=== PATIENT | female | born 1985 | race Caucasian/White ===

== ENCOUNTER 2024-11-03 21:57 | Emergency (ER) | payer MEDICAID, SELFPAY ==
[2024-11-03 21:57] VITALS: BMI 29.2
--- NOTE | 2024-11-03 22:01 | PD.EDRME ---
Rapid Medical Screening Exam RME Arrival date/time: 11/03/24 21:57 Chief Complaint: Nausea/Vomiting/Diarrhea RME Narrative: Here with abdominal pain, nausea, and vomiting. This started today. She has no urinary complaints.
[2024-11-03 22:04] VITALS: BP 132/90; PULSE 90; RESP 18; TEMP 36.9; O2SAT 97
[2024-11-03] MEDS: ACETAMINOPHEN 500 MG TABLET 1000 MG PO (22:14)
[2024-11-03] MEDS: ONDANSETRON ODT 4 MG TABRAP PO (22:14)
[2024-11-03 22:50] LABS: Basophils % (Auto) 0 % (0-2.5); Eosinophils % (Auto) 0 % (0-10); Hematocrit 39.6 % (36.0-46.0); Hemoglobin 14.1 g/dL (12.0-16.0); Immature Granulocytes % (Auto) 0 % (0-0); Immature Granulocytes Auto 0.02 Thou/mm3 (0.00-0.00); Lymphocytes # (Auto) 1.2 Thou/mm3 (1.0-4.8); Lymphocytes % (Auto) 20 % (10-50); Mean Corpuscular HGB Conc 35.6 g/dl (31.0-37.0); Mean Corpuscular Hemoglobin 28.7 pg (25.0-35.0); Mean Corpuscular Volume 81 fL (80-100); Monocytes # (Auto) 0.4 Thou/mm3 (0.0-0.8); Monocytes % (Auto) 6 % (0-12); Neutrophils # (Auto) 4.3 Thou/mm3 (1.8-7.7); Neutrophils % (Auto) 73 % (37-80); Nucleated Red Blood Cell % 0 /100 WBC (0); Platelet Count 188 Thou/mm3 (140-440); Red Blood Count 4.92 Miln/mm3 (4.00-5.20); White Blood Count 5.9 Thou/mm3 (3.6-11.0)
--- NOTE | 2024-11-03 22:58 | PD.EDNV ---
Nausea/Vomit./Diarrhea-RME/HPI General Chief complaint: Nausea/Vomiting/Diarrhea Stated complaint: VOMITING Time Seen by Provider: 11/03/24 22:30 Arrival date/time: 11/03/24 21:57 RME / HPI RME / HPI Narrative: Here with abdominal pain, nausea, and vomiting. This started today. She has no urinary complaints. --------- Dr. Jerry?s Main ED Evaluation: 39yo female presents to the ED for a chief complaint of epigastric pain x this morning. Patient states she woke up early this morning having significant epigastric pain. Patient reports associated nausea and vomiting. Patient denies any fever, chills, UTI symptoms, hematuria, bloody stooles or any otehr associated symptoms. Patient is a current tobacco smoker. PSH includes cholecystectomy, , and exploratory laparotomy. Denies any alcohol or illicit drug use. Related Data Previous Rx's ?Medication ?Instructions ?Recorded docusate sodium 100 mg capsule 100 mg PO BID #40 caps 09/28/22 (Colace) hydrocodone 5 mg-acetaminophen 325 1 tab PO Q6H PRN pain (scale score 09/28/22 mg tablet 7-10) #20 tabs ibuprofen 600 mg tablet 600 mg PO Q8H PRN pain (scale 09/28/22 score 4-6) #15 tabs ondansetron 4 mg disintegrating 4 mg PO Q12H PRN nausea and 10/13/22 tablet vomiting #4 tabs naproxen 500 mg tablet 500 mg PO BID PRN pain #30 tabs 11/19/22 ondansetron 4 mg disintegrating 4 mg PO Q6H PRN nausea and 10/13/23 tablet vomiting #20 tabs ondansetron 4 mg disintegrating 4 mg PO Q12H PRN nausea and 11/03/24 tablet vomiting #4 tabs Allergies Allergy/AdvReac Type Severity Reaction Status Date / Time avocado Allergy Severe abd pain, Verified 11/03/24 22:00 itching Sulfa (Sulfonamide Allergy Vomiting Verified 11/03/24 22:00 Antibiotics) Review of Systems Review of Systems Systems Reviewed: All systems reviewed, normal except as documented Past Medical History Past Medical History NEUROLOGIC: Positive Peripheral Neuropathy and Migraine; Negative Neurological Disorders or Seizures CARDIAC: Negative Cardiac Disorders or Congestive Heart Failure RESPIRATORY: Positive Asthma; Negative Chronic Obstructive Pulmonary Disease (COPD) GASTROINTESTINAL: Positive Gastrointestinal Disorders, Gall Bladder Disease, Diverticulitis, Hiatal Hernia, Hemorrhoids and Obesity; Negative Hepatitis GENITOURINARY: Negative Genitourinary Disorders or Renal Disease REPRODUCTIVE: Positive Pelvic Inflammatory Disease and Previous Pregnancies MUSCULOSKELETAL: Positive Musculoskeletal Disorders, Arthritis and Rheumatoid Arthritis ENT: Positive Deafness ENDOCRINE: Negative Endocrine Disorders, Diabetes Mellitus Type 1 or Diabetes Mellitus Type 2 HEMATOLOGIC: Negative Blood Disorders or Sickle Cell Disease PSYCHO/SOCIAL: Positive Depression, Anxiety and Depression OTHER HISTORY: Positive Chicken Pox and Cancer; Negative Autoimmune Disease, Shingles, Falls, Blood Transfusions, Anesthesia Reactions, MRSA, VRSA, Vancomycin-Resistant Enterococci, Human Immunodeficiency Virus (HIV), Measles, Mumps, Rubella (Nepali Measles), Pertussis or Clostridium Difficile Family History FAMILY HISTORY: Positive Family Psychiatric Problems, Family Cardiac Disorders, Family Cancer and Family Surgery; Negative Family Respiratory Disorders, Family Gastrointestinal Problems or Family Anesthesia Reaction Surgical History SURGICAL: Positive Tonsillectomy, Abdominal Surgery, Tubal Ligation and Section Social History SMOKING STATUS: Light (< 1 pack/day) SECOND HAND EXPOSURE: Yes SUBSTANCE USE: does not use ED Exam Narrative Physical exam: GEN. APPEARANCE: The patient is alert awake oriented X-3 in no distress, lying down comfortably, does not look ill/toxic. Patient has good eye contact. Patient is cooperative. VITALS: All vitals were reviewed and the pulse ox is 97% on room air which is normal according to my interpretation. HEENT: Normocephalic, atraumatic. Pupils are equal and reactive. Oral mucosa is moist. Patent Nares NECK: Supple, nontender, no thyromegaly, no meningismus, no JVD CHEST: Symmetrical, atraumatic, and with equal expansion , Nontender on palpation no deformity and no crepitus. CARDIOVASCULAR: Heart regular rhythm no murmur or gallop rub or extra beats. LUNGS: Clear to auscultation bilaterally with symmetrical chest rise. No laboring tachypnea or wheezing. No intercostal subcostal retraction. No rales and no rhonchi. ABDOMEN: Soft, flat, epigastric tenderness to palpation, no guarding or rebound tenderness. There are no abnormal masses palpated. Active and normal bowel sounds. EXTREMITIES: Nontender. No edema. No cyanosis. Patient is able to move all 4 extremities well, with full ROM and good CSM. SKIN: Warm and dry, no jaundice or rashes noted. NEURO: Patient is [place]DA[place] x 4, Cranial nerves II through XII grossly intact. There is no focal neurologic deficits noted. GCS is 15, PNS and SHOP FITTER appear grossly intact. PSYCHIATRIC: Patient is in normal mood and affect. Course Quality Measures none Orders Category Date Time Status CBC Stat Lab 11/03/24 22:25 Completed CMP [Comprehensive Metabolic Panel] Stat Lab 11/03/24 22:25 Completed HCG,Qualitative Serum Stat Lab 11/03/24 22:25 Completed Lipase Stat Lab 11/03/24 22:25 Completed UA, C/S IF [Urinalysis, C/S if Indicated] Stat Lab 11/04/24 00:15 Completed Acetaminophen Tab [Tylenol ES Tab] Med 11/03/24 22:00 Discontinued 1,000 mg PO X1 ONE Ondansetron Odt [Zofran Odt] Med 11/03/24 22:00 Discontinued 4 mg PO X1 ONE Vital Signs Vital signs: Vital Signs Temperature 98.5 F 11/03/24 22:04 Pulse Rate 90 11/03/24 22:04 Respiratory Rate 18 11/03/24 22:04 Blood Pressure 132/90 H 11/03/24 22:04 Pulse Oximetry (%) 97 11/03/24 22:04 Oxygen Delivery Method Room Air 11/03/24 22:04 Procedures -ED Smoking Cessation Time Spent Discussing Smoking Cessation w/Patient (min): 5 Patient Acknowledges Need for Cessation: Yes Additional Comments: The patient was counseled as to the multiple risks to their health from continued use of tobacco products. It was explained that continuing to smoke may lead to multiple short and penitentiary negative health consequences, including but not limited to mouth/esophageal/lung cancer, COPD, and heart disease. The patient states she/he understands these risks and also understands the options and resources available to them to help them stop smoking. Nicotine replacement therapy, local hotlines, and local resources were discussed as viable options for helping them stop their tobacco use. The total time spent counseling the patient regarding tobacco cessation was 5 minutes. Nausea/Vomiting/Diarrhea MDM Narrative MDM Narrative:: Scribe Attestation: 11/03/24 - Caren Muniz am scribing for and in the presence of Dr. Jerry. 0018: Patient tolerated PO fluids. Urinalysis still pending at this time. Patient data External records reviewed:: [facility] previous records (Per chart review, patient was seen here on 10/13/23 for abdominal pain.) and EMS form Clinical information provided by:: patient Social determinants that could affect healthcare access:: substance use (current smoker) Patient has the following chronic illnesses:: asthma How is presenting disease/condition affected by chronic disease/condition?: uneffected by Evaluation data The following diagnostics were reviewed and interpreted by me:: lab results Lab and/or radiology exams considered but not ordered:: none Interpretation Summary: CBC normal, CMP normal, Lipase normal, HCG negative, UA unremarkable. No evidence of acute abdomen, patient tolerating oral intake. No acute etiology for patient's current symptoms identified at this time. Patient tolerating oral intake symptoms resolved. Medications / Prescriptions Medications / Prescriptions considered but not ordered:: none Medication administrations:: Medication Administration History Discontinued Medications Acetaminophen (Acetaminophen 500 Mg Tablet) 1,000 mg PO X1 ONE Stop: 11/03/24 22:01 Last Admin: 11/03/24 22:14 Dose: 1,000 mg Documented By: ASUNCION Ondansetron HCl (Ondansetron Odt 4 Mg Tabrap) 4 mg PO X1 ONE; Protocol Stop: 11/03/24 22:01 Last Admin: 11/03/24 22:14 Dose: 4 mg Documented By: ASUNCION see above Consultations Consultation(s) initiated? (list below): No Diagnosis Nausea Differential Diagnosis: other (pancreatitis, gastritis, enteritis, food intolerance, metabolic disturbance, pyelonephritis) Most likely diagnosis given after review of the tests above:: see clinical impression below Admission Indicated Admission indicated?: not indicated Admission Request Was there a request for admission?: No Disposition Plan Disposition Plan: Discharge Discharge Attestation Discharge Attestation: The patient and all family members were given an opportunity to ask questions and understood the discharge instructions. Discharge instructions specifically effects, indications for sooner follow up or return to the emergency department, and the expected course of current diagnosis. Patient condition: Stable Discharge Plan Plan Patient Disposition: HOME (Self Care) Prescriptions/Referrals Prescriptions/Med Rec: New ondansetron 4 mg tablet,disintegrating 4 mg PO Q12H PRN (Reason: nausea and vomiting) Qty: 4 0RF No Action naproxen 500 mg tablet 500 mg PO BID PRN (Reason: pain) Qty: 30 0RF ondansetron 4 mg tablet,disintegrating 4 mg PO Q6H PRN (Reason: nausea and vomiting) Qty: 20 0RF docusate sodium [Colace] 100 mg capsule 100 mg PO BID Qty: 40 0RF ibuprofen 600 mg tablet 600 mg PO Q8H PRN (Reason: pain (scale score 4-6)) Qty: 15 0RF hydrocodone-acetaminophen 5-325 mg tablet 1 tab PO Q6H MDD 4 PRN (Reason: pain (scale score 7-10)) Qty: 20 0RF ondansetron 4 mg tablet,disintegrating 4 mg PO Q12H PRN (Reason: nausea and vomiting) Qty: 4 0RF Referrals: Rivera Cox MD [Primary Care Provider] - In 1 week Problem List Clinical Impression: Nausea & vomiting, Acute epigastric pain Patient/Caregiver Discharge Instructions Discharge Activity: resume usual activities Diet Instructions: bland diet, avoid smoking/carbonated drinks, spicy food Education Materials: ED Vomiting (Adult) Additional Instructions: Please discuss your hiatal hernia with a security infrastructure engineer as this may be contributing to your symptoms Print Language: Haitian Stand Alone Forms: Samra Award Info., Patient Portal Info Letter
[2024-11-03 23:07] LABS: HCG,Qualitative Serum Negative
[2024-11-03 23:08] LABS: Alanine Aminotransferase 21 U/L (10-49); Albumin/Globulin Ratio 1.5 (1.2-2.2); Alkaline Phosphatase 71 U/L (46-116); Anion Gap 7 (7-16); Aspartate Amino Transferase 32 U/L (0-34); BUN/Creatinine Ratio 20 Ratio (12-20); Bilirubin,Total 0.7 mg/dL (0.3-1.2); Blood Urea Nitrogen 14 mg/dL (9-23); Calcium 8.3 mg/dL (8.3-10.6); Calcium (Corrected) 8.3 mg/dL (8.5-10.1); Chloride 105 mMol/L (98-107); Creatinine (Component) 0.7 mg/dL (0.6-1.3); Estimated Creatinine Clearance 102.5 mL/min (>60); Globulin 2.7 gm/dL (2.3-3.5); Glucose 98 mg/dL (74-106); Lipase 31 U/L (12-53); Osmolality,Calculated 278 (275-295); Potassium 3.8 mMol/L (3.4-5.1); Sodium 139 mMol/L (136-145); Total Protein 6.7 gm/dL (5.7-8.2); eGFR > 60 See Note
[2024-11-03 23:24] VITALS: BP 131/82; PULSE 90; RESP 18; TEMP 36.8; O2SAT 99
[2024-11-04 00:21] LABS: Collection Type, Urine Clean Catch
[2024-11-04 00:35] LABS: Bilirubin,Urine Negative (Negative); Blood,Urine Negative (Negative); Clarity,Urine Clear (Clear/Hazy); Color,Urine Lt-Yellow (Lt Yel-Yel); Culture Indicated,Urine Not Indicated; Glucose, Urine Negative (Negative); Ketones,Urine Negative (Negative); Leukocyte Esterase,Urine Negative (Negative); Nitrite,Urine Negative (Negative); Protein,Urine Negative (Neg - Trace); RBC,Urine 1 /hpf (0-3); Specific Gravity,Urine 1.017 (1.001-1.035); Squamous Epithelial Cell,Urine 2 /hpf (0-5); Urobilinogen,Urine Negative mg/dL (0.0-1.0); WBC,Urine 2 /hpf (0-5)
[2024-11-04 01:01] VITALS: BP 128/76; PULSE 76; RESP 16; TEMP 36.8; O2SAT 98
== END 2024-11-04 01:03 | disposition home or self-care (01) ==
PROVIDERS: Physician Assistant Medical; Emergency Provider Emergency Medicine; PCP Obstetrics & Gynecology
DX: R11.2 Nausea with vomiting, unspecified (principal); R10.13 Epigastric pain
CPT/HCPCS: 36415; 80053; 81001; 83690; 84703; 85025; 99283; Q0162; A9270

== ENCOUNTER 2025-03-02 13:46 | Emergency (ER) | payer MEDICAID, SELFPAY ==
[2025-03-02 13:54] VITALS: PULSE 76; RESP 18; O2SAT 99
[2025-03-02 14:05] VITALS: BP 153/94; PULSE 72; RESP 20; TEMP 37.1; O2SAT 99; BMI 34.3
--- NOTE | 2025-03-02 15:01 | PD.EDABDPN ---
ED Abdominal Pain RME/HPI General Chief Complaint: Abdominal Pain Stated complaint: ABDOMINAL PAIN Time seen by provider: 03/02/25 13:50 Arrival date/time: 03/02/25 13:46 RME / HPI RME / HPI narrative: 40 year old male with no stated medical history presents to the ED BIBA from home for evaluation of vomiting, diarrhea, and abdominal pain beginning this morning. Abdominal pain described as cramping aching in sensation that is located throughout, rating as severe. Accompanied by sweating and bright red blood streaks in stool. States her had given her Imodium and one of his [place] with little to no relief, prompting ED visit. Patient states she was at her usual state of health yesterday and for dinner had made a pot roast sandwich. Denies any sick contacts or recent travel. Denies fevers, chills, chest pain, cough, shortness of breath, or urinary symptoms. Related Data Previous Rx's ?Medication ?Instructions ?Recorded docusate sodium 100 mg capsule 100 mg PO BID #40 caps 09/28/22 (Colace) hydrocodone 5 mg-acetaminophen 325 1 tab PO Q6H PRN pain (scale score 09/28/22 mg tablet 7-10) #20 tabs ibuprofen 600 mg tablet 600 mg PO Q8H PRN pain (scale 09/28/22 score 4-6) #15 tabs ondansetron 4 mg disintegrating 4 mg PO Q12H PRN nausea and 10/13/22 tablet vomiting #4 tabs naproxen 500 mg tablet 500 mg PO BID PRN pain #30 tabs 11/19/22 ondansetron 4 mg disintegrating 4 mg PO Q6H PRN nausea and 10/13/23 tablet vomiting #20 tabs ondansetron 4 mg disintegrating 4 mg PO Q12H PRN nausea and 11/03/24 tablet vomiting #4 tabs famotidine 40 mg tablet 40 mg PO BID PRN stomach upset #20 03/02/25 tabs ondansetron 4 mg disintegrating 4 mg PO Q8H PRN nausea and 03/02/25 tablet vomiting #6 tabs Allergies Allergy/AdvReac Type Severity Reaction Status Date / Time avocado Allergy Severe abd pain, Verified 11/03/24 22:00 itching Sulfa (Sulfonamide Allergy Vomiting Verified 11/03/24 22:00 Antibiotics) Review of Systems Review of Systems Systems Reviewed: All systems reviewed, normal except as documented Past Medical History Past Medical History NEUROLOGIC: Positive Peripheral Neuropathy and Migraine RESPIRATORY: Positive Asthma GASTROINTESTINAL: Positive Gastrointestinal Disorders, Gall Bladder Disease, Diverticulitis, Hiatal Hernia, Hemorrhoids and Obesity REPRODUCTIVE: Positive Pelvic Inflammatory Disease and Previous Pregnancies MUSCULOSKELETAL: Positive Musculoskeletal Disorders, Arthritis and Rheumatoid Arthritis ENT: Positive Deafness PSYCHO/SOCIAL: Positive Depression, Anxiety and Depression OTHER HISTORY: Positive Chicken Pox and Cancer Family History FAMILY HISTORY: Positive Family Psychiatric Problems, Family Cardiac Disorders, Family Cancer and Family Surgery Surgical History SURGICAL: Positive Tonsillectomy, Abdominal Surgery, Tubal Ligation and Section Social History SMOKING STATUS: Never smoker SECOND HAND EXPOSURE: Yes SUBSTANCE USE: does not use ED Exam Narrative Physical exam: Constitutional: Awake, alert, nontoxic, appears uncomfortable otherwise in no acute distress HEENT: Normocephalic, atraumatic, extraocular movements intact. Neck: Supple CV: Regular rate and rhythm, no murmurs/rubs/gallops Lungs: Clear to auscultation BL, no respiratory distress. Abd: Soft, minimal tenderness throughout abdomen, no guarding, no rebound, ND, no HSM noted to palpation Skin: Warm, dry, intact Course Course Course Narrative: 1650h: Patient reports feeling improved. Patient initially had refused any sick contacts. However, now mentioned other family members in her home have been sick with similar symptoms. Patient vitally stable, will DC home. Quality Measures none Orders Category Date Time Status Insert IV NOW Care 03/02/25 14:59 Active CBC Stat Lab 03/02/25 15:05 Completed CMP [Comprehensive Metabolic Panel] Stat Lab 03/02/25 15:05 Completed Magnesium Stat Lab 03/02/25 15:05 Completed Urinalysis, C/S if Indicated Stat Lab 03/02/25 17:01 Received Dicyclomine Inj [Bentyl Inj] Med 03/02/25 14:58 Discontinued 20 mg IM X1 ONE Ondansetron Inj [Zofran Inj] Med 03/02/25 14:58 Discontinued 4 mg IVP X1 ONE Prochlorperazine Inj [Compazine Inj] Med 03/02/25 14:58 Discontinued 10 mg IV X1 ONE Vital Signs Vital signs: Vital Signs Temperature 98.8 F 03/02/25 14:05 Pulse Rate 72 03/02/25 14:05 Respiratory Rate 20 03/02/25 14:05 Blood Pressure 153/94 H 03/02/25 14:05 Pulse Oximetry (%) 99 03/02/25 14:05 Oxygen Delivery Method Room Air 03/02/25 14:05 Pulse ox is 99% on room air which is adequate. Abdominal Pain MDM MDM Narrative MDM Narrative:: Anu Muniz am scribing for and in the presence of Dr. Sheth. Patient data External records reviewed:: [facility] previous records and EMS form Clinical information provided by:: patient Social determinants that could affect healthcare access:: none Patient has the following chronic illnesses:: none reported How is presenting disease/condition affected by chronic disease/condition?: no chronic disease Evaluation data The following diagnostics were reviewed and interpreted by me:: lab results Lab and/or radiology exams considered but not ordered:: None Interpretation Summary: Laboratory Results WBC 14.5 Thou/mm3 (3.6-11.0) H 03/02/25 15:05 RBC 5.01 Miln/mm3 (4.00-5.20) 03/02/25 15:05 Hgb 14.7 g/dL (12.0-16.0) 03/02/25 15:05 Hct 41.5 % (36.0-46.0) 03/02/25 15:05 MCV 83 fL (80-100) 03/02/25 15:05 MCH 29.3 pg (25.0-35.0) 03/02/25 15:05 MCHC 35.4 g/dl (31.0-37.0) 03/02/25 15:05 RDW Std Deviation 36.6 fL (36.4-46.3) 03/02/25 15:05 Plt Count 230 Thou/mm3 (140-440) 03/02/25 15:05 Neut % (Auto) 89 % (37-80) H 03/02/25 15:05 Lymph % (Auto) 6 % (10-50) L 03/02/25 15:05 Wilkinson % (Auto) 5 % (0-12) 03/02/25 15:05 Eos % (Auto) 0 % (0-10) 03/02/25 15:05 Baso % (Auto) 0 % (0-2.5) 03/02/25 15:05 Neut # (Auto) 12.8 Thou/mm3 (1.8-7.7) H 03/02/25 15:05 Lymph # (Auto) 0.8 Thou/mm3 (1.0-4.8) L 03/02/25 15:05 Wilkinson # (Auto) 0.8 Thou/mm3 (0.0-0.8) 03/02/25 15:05 Eos # (Auto) 0.0 Thou/mm3 (0.0-0.5) 03/02/25 15:05 Baso # (Auto) 0.0 Thou/mm3 (0.0-0.2) 03/02/25 15:05 Immature Gran # (Auto) 0.03 Thou/mm3 (0.00-0.00) H 03/02/25 15:05 Absolute Nucleated RBC 0.00 Thou/mm3 (0.00-0.00) 03/02/25 15:05 Immature Gran % 0 % (0-0) 03/02/25 15:05 Nucleated RBC % 0 /100 WBC (0) 03/02/25 15:05 Sodium 137 mMol/L (136-145) 03/02/25 15:05 Potassium 4.6 mMol/L (3.4-5.1) 03/02/25 15:05 Chloride 102 mMol/L (98-107) 03/02/25 15:05 Carbon Dioxide 27.9 mMol/L (20.0-31.0) 03/02/25 15:05 Anion Gap 7 (7-16) 03/02/25 15:05 BUN 8 mg/dL (9-23) L 03/02/25 15:05 Creatinine 0.7 mg/dL (0.6-1.3) 03/02/25 15:05 Estim Creat Clear Calc 114.2 mL/min (>60) 03/02/25 15:05 eGFR > 60 See Note (60-) 03/02/25 15:05 BUN/Creatinine Ratio 11 Ratio (12-20) L 03/02/25 15:05 Glucose 101 mg/dL (74-106) 03/02/25 15:05 Calculated Osmolality 272 (275-295) L 03/02/25 15:05 Calcium 9.0 mg/dL (8.3-10.6) 03/02/25 15:05 Corrected Calcium 9.0 mg/dL (8.5-10.1) 03/02/25 15:05 Magnesium 1.7 mg/dL (1.6-2.6) 03/02/25 15:05 Total Bilirubin 0.5 mg/dL (0.3-1.2) 03/02/25 15:05 AST 17 U/L (0-34) 03/02/25 15:05 ALT 13 U/L (10-49) 03/02/25 15:05 Alkaline Phosphatase 69 U/L (46-116) 03/02/25 15:05 Total Protein 7.3 gm/dL (5.7-8.2) 03/02/25 15:05 Albumin 4.2 gm/dL (3.5-5.0) 03/02/25 15:05 Globulin 3.1 gm/dL (2.3-3.5) 03/02/25 15:05 Albumin/Globulin Ratio 1.4 (1.2-2.2) 03/02/25 15:05 Patient Medications / Prescriptions Medications or Prescriptions considered but not ordered:: None Medication administrations:: Medication Administration History Discontinued Medications Dicyclomine HCl (Dicyclomine Inj 10 Mg/Ml 2ml Vial) 20 mg IM X1 ONE Stop: 03/02/25 14:59 Last Admin: 03/02/25 15:38 Dose: 20 mg Documented By: LINCOLN Ondansetron HCl (Ondansetron Inj 2 Mg/Ml Inj 2 Ml) 4 mg IVP X1 ONE; Protocol Stop: 03/02/25 14:59 Last Admin: 03/02/25 15:38 Dose: 4 mg Documented By: LINCOLN Prochlorperazine Edisylate (Prochlorperazine Inj 5 Mg/Ml Vial 2 Ml) 10 mg IV X1 ONE; Protocol Stop: 03/02/25 14:59 Last Admin: 03/02/25 15:38 Dose: 10 mg Documented By: LINCOLN See above Consultations Consultation(s) initiated? (list below): No Diagnosis Differential diagnosis abdominal pain: abdominal pain, diverticulitis and gastroenteritis Most likely diagnosis given after review of the tests above:: Gastroenteritis Admission Indicated Admission indicated?: not indicated Admission Request Was there a request for admission?: No Disposition Plan Disposition Plan: Discharge Discharge Attestation Discharge Attestation: The patient and all family members were given an opportunity to ask questions and understood the discharge instructions. Discharge instructions specifically effects, indications for sooner follow up or return to the emergency department, and the expected course of current diagnosis. Patient condition: Stable Discharge Plan Plan Patient Disposition: HOME (Self Care) Patient condition on transfer: Stable Prescriptions/Referrals Prescriptions/Med Rec: New famotidine 40 mg tablet 40 mg PO BID PRN (Reason: stomach upset) Qty: 20 0RF ondansetron 4 mg tablet,disintegrating 4 mg PO Q8H PRN (Reason: nausea and vomiting) Qty: 6 0RF No Action naproxen 500 mg tablet 500 mg PO BID PRN (Reason: pain) Qty: 30 0RF ondansetron 4 mg tablet,disintegrating 4 mg PO Q6H PRN (Reason: nausea and vomiting) Qty: 20 0RF docusate sodium [Colace] 100 mg capsule 100 mg PO BID Qty: 40 0RF ibuprofen 600 mg tablet 600 mg PO Q8H PRN (Reason: pain (scale score 4-6)) Qty: 15 0RF hydrocodone-acetaminophen 5-325 mg tablet 1 tab PO Q6H MDD 4 PRN (Reason: pain (scale score 7-10)) Qty: 20 0RF ondansetron 4 mg tablet,disintegrating 4 mg PO Q12H PRN (Reason: nausea and vomiting) Qty: 4 0RF ondansetron 4 mg tablet,disintegrating 4 mg PO Q12H PRN (Reason: nausea and vomiting) Qty: 4 0RF Referrals: No Primary/Family,Physician [Primary Care Provider] - In 1 week Problem List Clinical Impression: Acute gastroenteritis Patient/Caregiver Discharge Instructions Diet Instructions: Full liquid diet the next day, then bland diet the next few days Education Materials: ED Gastroenteritis, Noninfectious Additional Instructions: Some general health principles that can help you are the [place] principles: Nutrition (eat a plant-based diet, avoiding meats in general, avoiding highly processed foods) Exercise (Daily exercise/walks as tolerated) Water (Drink adequate fresh water to maintain hydration, concentrating on water rather than on soda, coffee, tea, juice, etc for hydration) [place] (Spend time - 15-20 minutes or so with skin exposed in the early childhood education coordinator and late evening sun for Vitamin D health benefits) [place] (Avoid alcohol, illicit drugs, caffeinated beverages, smoking, etc) Air (Deep breathing exercises in the early mornings in fresh air) Rest (Adequate rest at night, going to bed a few hours before midnight and avoiding all screens/television/loud music in the time right before going to bed, also avoiding heavy meals just prior to going to bed) Trust in God (Spend time daily in Bible study and prayer - health benefits in contemplation of God's true character) Additional resources that can benefit: [email or web address], look under resources and seminars. Another good website is [email or web address] Print Language: Bulgarian Stand Alone Forms: Samra Award Info., Work/School Release, Patient Portal Info Letter
[2025-03-02 15:20] LABS: Basophils # (Auto) 0.0 Thou/mm3 (0.0-0.2); Basophils % (Auto) 0 % (0-2.5); Eosinophils # (Auto) 0.0 Thou/mm3 (0.0-0.5); Eosinophils % (Auto) 0 % (0-10); Hematocrit 41.5 % (36.0-46.0); Hemoglobin 14.7 g/dL (12.0-16.0); Immature Granulocytes Auto 0.03 Thou/mm3 (0.00-0.00); Lymphocytes # (Auto) 0.8 Thou/mm3 (1.0-4.8); Lymphocytes % (Auto) 6 % (10-50); Mean Corpuscular HGB Conc 35.4 g/dl (31.0-37.0); Mean Corpuscular Hemoglobin 29.3 pg (25.0-35.0); Mean Corpuscular Volume 83 fL (80-100); Monocytes # (Auto) 0.8 Thou/mm3 (0.0-0.8); Monocytes % (Auto) 5 % (0-12); Neutrophils # (Auto) 12.8 Thou/mm3 (1.8-7.7); Neutrophils % (Auto) 89 % (37-80); Nucleated Red Blood Cell # 0.00 Thou/mm3 (0.00-0.00); Nucleated Red Blood Cell % 0 /100 WBC (0); Platelet Count 230 Thou/mm3 (140-440); RDW Standard Deviation 36.6 fL (36.4-46.3); Red Blood Count 5.01 Miln/mm3 (4.00-5.20); White Blood Count 14.5 Thou/mm3 (3.6-11.0)
[2025-03-02 15:38] LABS: Alanine Aminotransferase 13 U/L (10-49); Albumin, Serum 4.2 gm/dL (3.5-5.0); Albumin/Globulin Ratio 1.4 (1.2-2.2); Alkaline Phosphatase 69 U/L (46-116); Anion Gap 7 (7-16); Aspartate Amino Transferase 17 U/L (0-34); BUN/Creatinine Ratio 11 Ratio (12-20); Bilirubin,Total 0.5 mg/dL (0.3-1.2); Blood Urea Nitrogen 8 mg/dL (9-23); Calcium 9.0 mg/dL (8.3-10.6); Calcium (Corrected) 9.0 mg/dL (8.5-10.1); Carbon Dioxide 27.9 mMol/L (20.0-31.0); Chloride 102 mMol/L (98-107); Creatinine (Component) 0.7 mg/dL (0.6-1.3); Estimated Creatinine Clearance 114.2 mL/min (>60); Globulin 3.1 gm/dL (2.3-3.5); Glucose 101 mg/dL (74-106); Magnesium 1.7 mg/dL (1.6-2.6); Osmolality,Calculated 272 (275-295); Potassium 4.6 mMol/L (3.4-5.1); Sodium 137 mMol/L (136-145); Total Protein 7.3 gm/dL (5.7-8.2); eGFR > 60 See Note
[2025-03-02] MEDS: PROCHLORPERAZINE INJ 5 MG/ML VIAL 2 ML 10 MG IV (15:38)
[2025-03-02] MEDS: ONDANSETRON INJ 2 MG/ML INJ 2 ML 4 MG IVP (15:38)
[2025-03-02] MEDS: DICYCLOMINE INJ 10 MG/ML 2ML VIAL 20 MG IM (15:38)
[2025-03-02 17:06] LABS: Collection Type, Urine Clean Catch
[2025-03-02 17:33] LABS: Bilirubin,Urine Negative (Negative); Blood,Urine Negative (Negative); Clarity,Urine Clear (Clear/Hazy); Color,Urine Yellow (Lt Yel-Yel); Culture Indicated,Urine Not Indicated; Glucose, Urine Negative (Negative); Ketones,Urine Negative (Negative); Leukocyte Esterase,Urine Negative (Negative); Nitrite,Urine Negative (Negative); PH,Urine 7.0 (5.0-7.0); Protein,Urine Trace (Neg - Trace); RBC,Urine 1 /hpf (0-3); Specific Gravity,Urine 1.027 (1.001-1.035); Squamous Epithelial Cell,Urine 4 /hpf (0-5); Urobilinogen,Urine Negative mg/dL (0.0-1.0); WBC,Urine < 1 /hpf (0-5)
== END 2025-03-02 17:31 | disposition home or self-care (01) ==
PROVIDERS: Emergency Provider Family Medicine
DX: K52.9 Noninfective gastroenteritis and colitis, unspecified (principal)
CPT/HCPCS: 36415; 80053; 81001; 83735; 85025; 96372; 96374; 99283; J0500; J0780; J2405